=== PATIENT | male | born 1985 | race Two or more races ===

== ENCOUNTER 2020-07-27 13:20 | Inpatient (IN) | payer OTHER ==
[2020-07-27 15:37] VITALS: BMI 28.6
[2020-07-27] MEDS ORDERED: NALOXONE HCL 0.4 MG/ML VIAL IM PRN (16:18)
[2020-07-27] MEDS ORDERED: MENTHOL/PHENOL 1 EACH UD MM PRN (16:18)
[2020-07-27] MEDS ORDERED: BISMUTH SUBSALICYLATE 524 MG/30 ML UD PO PRN (16:18)
[2020-07-27] MEDS ORDERED: MAG HYDROX/AL HYDROX/SIMETH 30 ML UNIT-DOSE CUP PO PRN (16:18)
[2020-07-27] MEDS ORDERED: METHADONE HCL 10 MG TABLET (FOR DETOX USE ONLY) PO ONE (16:18)
[2020-07-27] MEDS ORDERED: MAGNESIUM CITRATE 300 ML BOTTLE PO PRN (16:18)
[2020-07-27] MEDS ORDERED: ACETAMINOPHEN 325 MG TABLET (FP) PO PRN ×2 (16:18)
[2020-07-27] MEDS ORDERED: MAGNESIUM HYDROX 2400MG/30ML ORAL SUSPENSION 30 ML CUP PO PRN (16:18)
[2020-07-27] MEDS: THIAMINE HCL 100 MG TABLET (FP) PO SCH (22:15)
[2020-07-27] MEDS: MELATONIN 5 MG TABLETS PO SCH (22:15)
[2020-07-27] MEDS: cloNIDine HCL 0.1 MG TABLET PO PRN (22:15)
[2020-07-27] MEDS: METHOCARBAMOL 500 MG TABLET PO PRN (22:17)
[2020-07-28] MEDS: cloNIDine HCL 0.1 MG TABLET PO PRN ×4 (02:34→20:18)
[2020-07-28] MEDS: METHOCARBAMOL 500 MG TABLET PO PRN ×3 (07:25→18:36)
[2020-07-28] MEDS ORDERED: METHADONE HCL 5 MG TABLET (FOR DETOX USE ONLY) ONE (09:20)
[2020-07-28] MEDS ORDERED: METHADONE HCL 10 MG TABLET (FOR DETOX USE ONLY) ONE (09:21)
[2020-07-28 09:51] LABS: POTASSIUM 4.7 mmol/L (3.5-5.1)
[2020-07-28 09:54] LABS: ALBUMIN 3.3 g/dl (3.4-5.0); CALCIUM 8.9 mg/dL (8.5-10.1)
[2020-07-28 09:55] LABS: BLOOD UREA NITROGEN 9.6 mg/dL (7-18)
[2020-07-28 09:58] LABS: BILIRUBIN,TOTAL 0.6 mg/dL (0.2-1)
[2020-07-28] MEDS ORDERED: METHADONE (DETOX) 20 MG, METHADONE (DETOX) 5 MG PO ONE (10:00)
[2020-07-28 10:02] LABS: TOT PROT 6.8 g/dl (6.4-8.2)
[2020-07-28 10:06] LABS: HEMOGLOBIN 11.7 GM/dL (11.7-16.9); MCH 29.2 pg (25.7-33.7); MCHC 34.4 g/dl (32.0-35.9); MEAN CELL VOLUME 84.9 fl (80-96); MEAN PLT VOLUME 7.5 fl (7.5-11.1); PLATELET COUNT 291 K/MM3 (134-434); WHITE BLOOD COUNT 4.6 K/mm3 (4.0-10.0)
[2020-07-28] MEDS: PRENATAL VITAMINS W/ FOLIC ACID TABLET (FP) PO SCH (10:11)
[2020-07-28] MEDS: IBUPROFEN 400 MG TABLET (FP) PO PRN ×2 (12:38→18:35)
[2020-07-28] MEDS: busPIRone HCL 5 MG TABLET PO SCH ×2 (12:52→22:12)
[2020-07-28] MEDS: THIAMINE HCL 100 MG TABLET (FP) PO SCH (22:12)
[2020-07-28] MEDS: MELATONIN 5 MG TABLETS PO SCH (22:12)
[2020-07-28] MEDS: hydrOXYzine PAMOATE 50 MG CAPSULE (FP) PO PRN (22:12)
[2020-07-29] MEDS: METHOCARBAMOL 500 MG TABLET PO PRN ×3 (04:09→18:46)
[2020-07-29] MEDS: IBUPROFEN 400 MG TABLET (FP) PO PRN ×3 (04:09→18:46)
[2020-07-29] MEDS: cloNIDine HCL 0.1 MG TABLET PO PRN ×3 (04:10→14:44)
[2020-07-29] MEDS ORDERED: METHADONE HCL 10 MG TABLET (FOR DETOX USE ONLY) PO ONE (10:00)
[2020-07-29] MEDS: PRENATAL VITAMINS W/ FOLIC ACID TABLET (FP) PO SCH (10:02)
[2020-07-29] MEDS: busPIRone HCL 5 MG TABLET PO SCH ×2 (10:02→22:16)
[2020-07-29] MEDS: diazePAM 5 MG TABLET PO PRN ×2 (17:20→22:18)
[2020-07-29] MEDS: THIAMINE HCL 100 MG TABLET (FP) PO SCH (22:16)
[2020-07-29] MEDS: MELATONIN 5 MG TABLETS PO SCH (22:16)
[2020-07-29] MEDS: hydrOXYzine PAMOATE 50 MG CAPSULE (FP) PO PRN (22:18)
[2020-07-30] MEDS: METHOCARBAMOL 500 MG TABLET PO PRN ×2 (05:17→13:08)
[2020-07-30] MEDS: IBUPROFEN 400 MG TABLET (FP) PO PRN ×2 (05:18→13:08)
[2020-07-30] MEDS: diazePAM 5 MG TABLET PO PRN ×4 (05:18→18:24)
[2020-07-30] MEDS ORDERED: METHADONE HCL 10 MG TABLET (FOR DETOX USE ONLY) ONE (08:50)
[2020-07-30] MEDS ORDERED: METHADONE HCL 5 MG TABLET (FOR DETOX USE ONLY) ONE (08:50)
[2020-07-30] MEDS ORDERED: METHADONE (DETOX) 10 MG, METHADONE (DETOX) 5 MG PO ONE (10:00)
[2020-07-30] MEDS: busPIRone HCL 5 MG TABLET PO SCH ×2 (10:07→22:14)
[2020-07-30] MEDS: PRENATAL VITAMINS W/ FOLIC ACID TABLET (FP) PO SCH (10:07)
[2020-07-30] MEDS: MELATONIN 5 MG TABLETS PO SCH (22:14)
[2020-07-30] MEDS: THIAMINE HCL 100 MG TABLET (FP) PO SCH (22:14)
[2020-07-30] MEDS: hydrOXYzine PAMOATE 50 MG CAPSULE (FP) PO PRN (22:15)
[2020-07-31] MEDS: diazePAM 5 MG TABLET PO PRN ×5 (03:53→22:14)
[2020-07-31] MEDS: METHOCARBAMOL 500 MG TABLET PO PRN ×3 (03:53→18:19)
[2020-07-31] MEDS: IBUPROFEN 400 MG TABLET (FP) PO PRN ×3 (03:53→18:19)
[2020-07-31] MEDS ORDERED: METHADONE HCL 10 MG TABLET (FOR DETOX USE ONLY) PO ONE (10:00)
[2020-07-31] MEDS: busPIRone HCL 5 MG TABLET PO SCH ×2 (10:23→22:12)
[2020-07-31] MEDS: PRENATAL VITAMINS W/ FOLIC ACID TABLET (FP) PO SCH (10:23)
[2020-07-31] MEDS: MELATONIN 5 MG TABLETS PO SCH (22:12)
[2020-07-31] MEDS: THIAMINE HCL 100 MG TABLET (FP) PO SCH (22:12)
[2020-07-31] MEDS: hydrOXYzine PAMOATE 50 MG CAPSULE (FP) PO PRN (22:14)
[2020-08-01] MEDS: diazePAM 5 MG TABLET PO PRN (05:28)
[2020-08-01] MEDS: METHOCARBAMOL 500 MG TABLET PO PRN (05:28)
[2020-08-01] MEDS: IBUPROFEN 400 MG TABLET (FP) PO PRN (05:31)
[2020-08-01] MEDS ORDERED: METHADONE HCL 5 MG TABLET (FOR DETOX USE ONLY) PO ONE (06:00)
[2020-08-01 07:57] VITALS: BP 131/72; PULSE 74; TEMP 97.3
== END 2020-08-01 09:21 | disposition other institution (70) | DRG 773 ==
LOC: YASAS 13:20 → Y6N 15:29
PROVIDERS: ADMIT Allergy & Immunology; ATTEND Allergy & Immunology
PROC: HZ2ZZZZ Detoxification Services for Substance Abuse Treatment (ICD-10-PCS; principal; 2020-07-27)
DX: F11.23 Opioid dependence with withdrawal (principal); F12.10 Cannabis abuse, uncomplicated; F19.280 Other psychoactive substance dependence with psychoactive substance-induced anxiety disorder; F19.282 Other psychoactive substance dependence with psychoactive substance-induced sleep disorder
CPT/HCPCS: 36415; 80053; 85027; 86780; 93005; 93010; C9803; J0735; U0003